=== PATIENT | female | born 1995 | race Caucasian/White ===

== ENCOUNTER 2018-08-18 15:12 | Inpatient (IN) | payer OTHER ==
[~2018-08-18] VITALS: Ht 170.2 cm; Wt 87.5 kg
[~2018-08-18 15:12] MED LIST: CLARITIN 1010 MG/TAB; IBU800 M1 PO; PEPCID 20MG TAB20 MG PO; PERCOCET 325 MG1 TA2 PO; PRENATAL1 TA7 PO; TYLENOL 325MG325 MG PO; ZOFRAN ODT4 MG PO
[2018-08-18] MEDS ORDERED: SPRINTEC 35 MCG1 TAB PO (15:22)
[2018-08-18 15:52] LABS: COLLECTION METHOD CLEAN CATCH
[2018-08-18 16:07] LABS: MUCOUS Present /lpf; PH 5 (5-8); SQUAMOUS EPITHELIAL 20-50 /hpf; URINE APPEARANCE Cloudy; URINE BACTERIA None Seen /hpf; URINE BILIRUBIN Negative (NEGATIVE); URINE BLOOD 2+ (NEGATIVE); URINE COLOR Amber; URINE GLUCOSE Negative (NEGATIVE); URINE KETONE Trace (NEGATIVE); URINE LEUKOCYTE ESTERASE Trace (NEGATIVE); URINE NITRATE Negative (NEGATIVE); URINE PROTEIN(semi-quant) 1+ (NEGATIVE); URINE UROBILINOGEN >=4.0 mg/dL (NEGATIVE)
[2018-08-18 16:18] LABS: EOS # 0.2 (0.0-0.7); EOS % 6.7 % (0-4.0); GRAN # 2.3 (1.4-6.5); HEMATOCRIT 38.5 % (37.0-47.0); HEMOGLOBIN 12.7 g/dl (12.5-16.0); LYMPH # 0.6 (1.2-3.4); LYMPH % 18.5 % (20.0-51.0); MEAN CELL VOLUME 85 fl (80.0-100.0); MEAN CORPUSCULAR HEMOGLOBIN 28 pg (27.0-31.0); MEAN CORPUSCULAR HGB CONC 33 g/dl (33.0-37.0); MEAN PLATELET VOLUME 10.7 fl (7.4-10.4); MONO # 0.2 (0.1-0.6); MONO % 5.5 % (1.7-9.3); PLATELET COUNT 147 K/mm3 (130-400); RED BLOOD COUNT 4.52 M/mm3 (4.10-5.30); REDCELL DISTRIBUTION WIDTH-CV 13.7 % (11.5-14.5)
[2018-08-18 16:28] LABS: ALBUMIN 4.4 gm/dL (3.5-5.0); BILIRUBIN,TOTAL 0.4 mg/dL (0.0-1.0); C-REACTIVE PROTEIN 4.7 mg/dL (0.0-0.9); CALCIUM 8.8 mg/dL (8.4-10.2); CREATININE, serum 0.67 mg/dL (0.52-1.25); POTASSIUM 3.7 mmol/L (3.4-5.0); TOTAL PROTEIN 7.7 gm/dL (6.4-8.2)
[2018-08-18 19:50] VITALS: BP 114/66; PULSE 72; TEMP 100.3
[2018-08-18 23:19] VITALS: TEMP 104.4
[2018-08-19] VITALS (8 sets, daily range): BP systolic 100–112; BP diastolic 56–78; PULSE 64–92; TEMP 97.9–101.9
[2018-08-19 07:43] LABS: EOS # 0.2 (0.0-0.7); GRAN # 1.6 (1.4-6.5); GRAN % 58.6 % (42.2-75.2); HEMATOCRIT 37.8 % (37.0-47.0); HEMOGLOBIN 12.5 g/dl (12.5-16.0); LYMPH # 0.8 (1.2-3.4); LYMPH % 30.3 % (20.0-51.0); MEAN CELL VOLUME 86 fl (80.0-100.0); MEAN CORPUSCULAR HEMOGLOBIN 28 pg (27.0-31.0); MEAN CORPUSCULAR HGB CONC 33 g/dl (33.0-37.0); MEAN PLATELET VOLUME 11.9 fl (7.4-10.4); MONO # 0.1 (0.1-0.6); MONO % 3.7 % (1.7-9.3); PLATELET COUNT 111 K/mm3 (130-400); REDCELL DISTRIBUTION WIDTH-CV 13.7 % (11.5-14.5)
[2018-08-19 08:00] LABS: ALBUMIN 3.7 gm/dL (3.5-5.0); BILIRUBIN,TOTAL 0.7 mg/dL (0.0-1.0); CALCIUM 8.2 mg/dL (8.4-10.2); CREATININE, serum 0.55 mg/dL (0.52-1.25); POTASSIUM 3.5 mmol/L (3.4-5.0); TOTAL PROTEIN 6.7 gm/dL (6.4-8.2)
[2018-08-19 09:03] LABS: COLLECTION METHOD CLEAN CATCH
[2018-08-19 09:11] LABS: MUCOUS Present /lpf; PH 5 (5-8); URINE APPEARANCE Hazy; URINE BACTERIA None Seen /hpf; URINE BILIRUBIN Negative (NEGATIVE); URINE BLOOD 1+ (NEGATIVE); URINE COLOR Amber; URINE GLUCOSE Negative (NEGATIVE); URINE KETONE 2+ (NEGATIVE); URINE LEUKOCYTE ESTERASE Negative (NEGATIVE); URINE NITRATE Negative (NEGATIVE); URINE PROTEIN(semi-quant) 1+ (NEGATIVE); URINE RBC 20-50 /hpf; URINE UROBILINOGEN >=4.0 mg/dL (NEGATIVE)
[2018-08-19 09:46] LABS: HIV 1/2 Antibodies Non-Reactive; HIV-1p24 Antigen Non-Reactive
[2018-08-20 01:07] VITALS: BP 111/57; PULSE 70; TEMP 98.7
[2018-08-20 04:44] VITALS: BP 115/78; PULSE 66; TEMP 99.9
[2018-08-20 06:26] LABS: MEAN CELL VOLUME 85 fl (80.0-100.0); MEAN CORPUSCULAR HGB CONC 33 g/dl (33.0-37.0); MEAN PLATELET VOLUME 11.8 fl (7.4-10.4); PLATELET COUNT 114 K/mm3 (130-400); RED BLOOD COUNT 3.69 M/mm3 (4.10-5.30); REDCELL DISTRIBUTION WIDTH-CV 13.7 % (11.5-14.5)
[2018-08-20 06:28] LABS: HEMATOCRIT 31.2 % (37.0-47.0); HEMOGLOBIN 10.4 g/dl (12.5-16.0); MEAN CORPUSCULAR HEMOGLOBIN 28 pg (27.0-31.0)
[2018-08-20 06:37] LABS: ALBUMIN 3.2 gm/dL (3.5-5.0); BILIRUBIN,TOTAL 0.4 mg/dL (0.0-1.0); CALCIUM 7.6 mg/dL (8.4-10.2); CREATININE, serum 0.53 mg/dL (0.52-1.25); POTASSIUM 3.8 mmol/L (3.4-5.0)
[2018-08-20 07:22] LABS: BAND 26 % (0-10); EOSINOPHIL 5 % (0-4); LYMPHOCYTE 46 % (20.0-51.0); NEUTROPHILS 18 % (42.0-75.2); PLATELET ESTIMATE DECREASED (NORMAL)
[2018-08-20 08:45] VITALS: BP 104/61; PULSE 50; TEMP 98.6
[2018-08-20 12:29] VITALS: BP 110/73; PULSE 58; TEMP 98.1
[2018-08-20 15:38] VITALS: BP 107/71; PULSE 54; TEMP 98.6
[2018-08-20 21:17] VITALS: BP 101/57; PULSE 65; TEMP 98.5
[2018-08-21 03:45] VITALS: BP 117/69; PULSE 58; TEMP 98.1
[2018-08-21 05:58] LABS: CREATININE, serum 0.53 mg/dL (0.52-1.25); POTASSIUM 3.6 mmol/L (3.4-5.0)
[2018-08-21 06:00] LABS: HEMOGLOBIN 11.1 g/dl (12.5-16.0); MEAN CELL VOLUME 82 fl (80.0-100.0); MEAN CORPUSCULAR HEMOGLOBIN 28 pg (27.0-31.0); MEAN CORPUSCULAR HGB CONC 34 g/dl (33.0-37.0); MEAN PLATELET VOLUME 11.5 fl (7.4-10.4); PLATELET COUNT 128 K/mm3 (130-400); RED BLOOD COUNT 4.01 M/mm3 (4.10-5.30); REDCELL DISTRIBUTION WIDTH-CV 13.3 % (11.5-14.5)
[2018-08-21 06:27] LABS: BAND 12 % (0-10); EOSINOPHIL 2 % (0-4); LYMPHOCYTE 41 % (20.0-51.0); NEUTROPHILS 40 % (42.0-75.2)
[2018-08-21 08:14] VITALS: BP 105/70; PULSE 80; TEMP 99.8
[2018-08-21 08:20] LABS: PATHOLOGY DIFF REVIEW OK +
[2018-08-21 09:56] LABS: LYME DISEASE ANTIBODIES Negative (Negative)
[2018-08-21 12:15] VITALS: BP 117/66; PULSE 68; TEMP 98.9
[2018-08-21] MEDS ORDERED: CEFTIN500 MG PO (14:12)
[2018-08-21 15:14] VITALS: BP 119/81; PULSE 77; TEMP 98.2
[2018-08-25 22:11] LABS: EHRLICHIA CHAFFEENIS IGG SEE RESULTS IN PCI; EHRLICHIA CHAFFEENIS IGM SEE RESULTS IN PCI
== END 2018-08-21 16:05 | disposition home or self-care (01) | DRG 864 ==
LOC: COL.ER 15:12 → SURG 18:25
PROVIDERS: Emergency Medicine; Internal Medicine Infectious Disease; Nurse Practitioner; Nurse Practitioner Family; Physician Assistant
DX: R50.9 Fever, unspecified (principal); K80.20 Calculus of gallbladder without cholecystitis without obstruction; D69.6 Thrombocytopenia, unspecified; L27.0 Generalized skin eruption due to drugs and medicaments taken internally; T36.0X5A Adverse effect of penicillins, initial encounter
CPT/HCPCS: OP; 99222-AI; 99232-AI; G0378; J1200; J1650; J1885; J2270; J2405; J2543; J7030; Q9967

== ENCOUNTER → 2018-10-02 | Outpatient (CLI) | payer OTHER ==
[~2018-10-02] MED LIST changes: +CEFTIN500 MG PO; +SPRINTEC 35 MCG1 TAB PO
[2018-10-02 16:47] LABS: BASO % 0.5 % (0.0-2.0); EOS # 0.1 (0.0-0.7); EOS % 1.7 % (0-4.0); GRAN # 2.9 (1.4-6.5); HEMOGLOBIN 12.1 g/dl (12.5-16.0); LYMPH # 2.6 (1.2-3.4); LYMPH % 44.4 % (20.0-51.0); MEAN CELL VOLUME 88 fl (80.0-100.0); MEAN CORPUSCULAR HEMOGLOBIN 29 pg (27.0-31.0); MEAN CORPUSCULAR HGB CONC 33 g/dl (33.0-37.0); MEAN PLATELET VOLUME 10.7 fl (7.4-10.4); MONO # 0.3 (0.1-0.6); MONO % 4.2 % (1.7-9.3); PLATELET COUNT 398 K/mm3 (130-400); RED BLOOD COUNT 4.23 M/mm3 (4.10-5.30); REDCELL DISTRIBUTION WIDTH-CV 14.3 % (11.5-14.5)
[2018-10-02 16:53] LABS: ALBUMIN 4.7 gm/dL (3.5-5.0); BILIRUBIN,TOTAL 0.4 mg/dL (0.0-1.0); CALCIUM 9.5 mg/dL (8.4-10.2); CREATININE, serum 0.57 mg/dL (0.52-1.25); POTASSIUM 4.1 mmol/L (3.4-5.0); TOTAL PROTEIN 8.6 gm/dL (6.4-8.2)
== END ==
LOC: ZCOL.LAB 16:42
PROVIDERS: Family Medicine
DX: D69.6 Thrombocytopenia, unspecified (principal); R74.8 Abnormal levels of other serum enzymes

== ENCOUNTER → 2018-10-07 | Outpatient (CLI) | payer OTHER ==
[2018-10-07 18:59] LABS: THYROID STIMULATING HORMONE 2.94 uIU/mL (0.465-4.680)
== END ==
LOC: COL.LAB 17:44
PROVIDERS: Family Medicine
DX: R74.8 Abnormal levels of other serum enzymes (principal)

== ENCOUNTER → 2018-10-10 | Outpatient (CLI) | payer OTHER ==
[2018-10-11 04:21] LABS: IMMUNOGLOBULIN A 77 mg/dL (65-421)
== END ==
LOC: COL.LAB 15:50
PROVIDERS: Family Medicine
DX: D50.9 Iron deficiency anemia, unspecified (principal); R74.8 Abnormal levels of other serum enzymes

== ENCOUNTER → 2021-03-24 | Outpatient (CLI) | payer OTHER ==
[~2021-03-24] MED LIST changes: +CLARITIN 1010 MG/TAB PO; +MUCINEX 60600 MG/TA1 PO; +PRENATAL TABLET PO; +PROTONIX 40MG T40 MG PO; +TYLENOL 500MG500 MG PO; +ZOLOFT 50MG50 MG PO
== END ==
LOC: ZCOL.LAB 11:01
DX: Z20.822 Contact with and (suspected) exposure to COVID-19 (principal)

== ENCOUNTER 2021-03-28 06:20 | Inpatient (IN) | payer BC ==
[2021-03-28] VITALS (43 sets, daily range): BP systolic 100–156; BP diastolic 52–87; PULSE 64–111; TEMP 98.2–99.3
[~2021-03-28] VITALS: Ht 170.2 cm; Wt 110.0 kg
[~2021-03-28 06:20] MED LIST changes: -CLARITIN 1010 MG/TAB PO; -MUCINEX 60600 MG/TA1 PO; -PRENATAL TABLET PO; -PROTONIX 40MG T40 MG PO; -TYLENOL 500MG500 MG PO; -ZOLOFT 50MG50 MG PO
[2021-03-28] MEDS ORDERED: CLARITIN 1010 MG/TAB PO (07:13)
[2021-03-28] MEDS ORDERED: ZOLOFT 50MG50 MG PO (07:14)
[2021-03-28] MEDS ORDERED: PROTONIX 40MG T40 MG PO (07:14)
[2021-03-28] MEDS ORDERED: MUCINEX 60600 MG/TA1 PO (07:15)
[2021-03-28] MEDS ORDERED: TYLENOL 500MG500 MG PO (07:16)
[2021-03-28] MEDS ORDERED: PRENATAL TABLET PO (07:18)
[2021-03-28 07:49] LABS: BASO % 0.4 % (0.0-2.0); EOS # 0.1 (0.0-0.7); EOS % 0.9 % (0-4.0); GRAN % 62.1 % (42.2-75.2); LYMPH # 2.8 (1.2-3.4); LYMPH % 29.4 % (20.0-51.0); MEAN CELL VOLUME 86 fl (80.0-100.0); MEAN CORPUSCULAR HGB CONC 32 g/dl (33.0-37.0); MEAN PLATELET VOLUME 10.5 fl (7.4-10.4); MONO # 0.6 (0.1-0.6); MONO % 5.8 % (1.7-9.3); PLATELET COUNT 256 K/mm3 (130-400); RED BLOOD COUNT 3.28 M/mm3 (4.10-5.30); REDCELL DISTRIBUTION WIDTH-CV 14.3 % (11.5-14.5)
--- NOTE | 2021-03-28 07:49 | NUR ---
PT HERE FOR INDUCTION OF LABOR. PLAN OF CARE REVIEWED WITH PT AND . PT REPORTS SHE IS VERY ANXIOUS. QUESTIONS ANSWERED. FHT'S FOUND IN THE 130-140'S WITH MODERATE VARIABILITY AND ACCELS. IV STARTED IN LEFT HAND WITH LR INFUSING WITHOUT DIFFICULTY.
[2021-03-28 07:52] LABS: HEMATOCRIT 28.1 % (37.0-47.0); HEMOGLOBIN 9.1 g/dl (12.5-16.0); MEAN CORPUSCULAR HEMOGLOBIN 28 pg (27.0-31.0)
--- NOTE | 2021-03-28 08:30 | NUR ---
UNABLE TO ESTABLISH HEART RATE BASELINE PT WAS IN BATHROOM FOR 5 MINUTES. PT TO CHAIR AFTER VOIDING.
--- NOTE | 2021-03-28 09:00 | NUR ---
PT CONTINUES TO SIT IN CHAIR. STATES SHE IS NOT REALLY FEELING ANY CONTRACTIONS AT THIS POINT. PIT TO 10MU AT 0900. DR ROWLAND CALLS HERE AT 0900 TO CHECK ON PT AND STATES SHE WILL COME OVER TO BREAK WATER AFTER HER NEXT SURGERY. PT NOTIFIED.
--- NOTE | 2021-03-28 09:30 | NUR ---
PT GOT BACK INTO BED HERSELF. LYING RIGHT LATERAL. CONRACTIONS DIFFICULT TO MONITOR WITH PT LYING IN THIS POSITION.
--- NOTE | 2021-03-28 09:45 | NUR ---
CONTINUE TO BE UNABLE TO MONITOR CONTRACTIONS. WILL REPOSITION TOCO.
--- NOTE | 2021-03-28 10:45 | NUR ---
DR ROWLAND IN AT 1036. SVE /-2. AROM AT 1038 WITH CLEAR FLUID.
--- NOTE | 2021-03-28 11:15 | NUR ---
PT UP TO BATHROOM AND THEN TO SIT ON BIRTHING BALL. CONTRACTIONS DIFFICULT TO MONITOR WHILE SITTING ON BALL. REPOSITIONED TOCO MONITOR.
--- NOTE | 2021-03-28 12:30 | NUR ---
CONTRACTIONS REMAIN DIFFICULT TO MONITOR WHILE PT IS SITTING ON BIRTHING BALL.
--- NOTE | 2021-03-28 12:45 | NUR ---
PT WANTING EPIDURAL AT THIS TIME. FLUID BOLUS STARTED. PT SITTING UP IN BED FOR EPIDURAL.
--- NOTE | 2021-03-28 13:00 | NUR ---
PT SITTING UP FOR EPIDURAL. IRAJ FULLER, IN AT 1248 FOR EPIDURAL PLACEMENT. SINGLE SHOT EPIDURAL AT 1254 WITH NO ABNORMAL SYMPTOMS REPORTED OR OBSERVED. PT REPOSITIONED LYING DOWN AFTER EPIDURAL PLACEMENT.
--- NOTE | 2021-03-28 14:00 | NUR ---
HAYDEN PLACED BY ADA, STUDENT PN NURSE, WITH THIS RN IN ATTENDANCE. CLEAR YELLOW URINE RETURNED. SVE BY THIS RN /-2. PT REPOSITIONED WITH PEANUT BALL.
--- NOTE | 2021-03-28 15:00 | NUR ---
PT REPORTING SHE IS VERY ITCHY. 25MG IV BENADRYL GIVEN. PT REPOSITIONED.
--- NOTE | 2021-03-28 15:30 | NUR ---
AUDIBLE DECELS IN FHT'S AND LOSING ABILITY TO MONITOR FHT'S. REPOSITIONED PT TO PLACE FSE.
--- NOTE | 2021-03-28 15:45 | NUR ---
PRIOR TO PLACING FSE, SVE PERFORMED AND PT WITH COMPLETE CERVICAL DILATION AND +2. PHONED DR ROWLAND AT 1535 TO COME FOR DELIVERY. PT POSITIONED AND PREPPED FOR DELIVERY. DR HERE AT 1542. HAYDEN REMOVED WHEN DR ARRIVES. OF FEMALE AT 1545. BABY TO MOM'S CHEST IMMEDIATELY AND MOM CUTS CORD AFTER CORD CLAMPED. PITOCIN STOPPED AFTER DELIVERY OF INFANT.
--- NOTE | 2021-03-28 16:00 | NUR ---
DR ROWLAND AT BEDSIDE REPAIRING PERINEUM. SPONTANEOUS DELIVERY OF PLACENTA AT 1553. PITOCIN STARTED AT 333ML/HR. FUNDUS FIRMS WITH MASSAGE. ICE PACK TO PERINEUM ONCE DR COMPLETE WITH REPAIR.
--- NOTE | 2021-03-28 17:30 | NUR ---
PT UNABLE TO LIFT LEFT LEG OFF BED AT THIS TIME. EPIDURAL CATHETER REMOVED WITH TIP INTACT.
--- NOTE | 2021-03-28 19:30 | NUR ---
up to bathroom with steady gait. Voids large amount, performs own pericare. Clean gown on and ambulates to room. loving and attentive.
[2021-03-29 03:45] VITALS: BP 118/70; PULSE 76
[2021-03-29 08:30] VITALS: BP 108/58; PULSE 73; TEMP 97.8
--- NOTE | 2021-03-29 09:02 | NUR ---
PT INFORMED THIS RN SHE TOOK HER OWN ZOLOFT SHE BROUGHT FROM HOME
[2021-03-29] MEDS ORDERED: IBU800 M1 PO (11:43)
[2021-03-29] MEDS ORDERED: PERCOCET 325 MG1 TA2 PO (11:43)
[2021-03-29 12:34] VITALS: BP 110/66; PULSE 78; TEMP 97.1
[2021-03-29 17:32] VITALS: BP 137/75; PULSE 80; TEMP 98.1
== END 2021-03-29 18:15 | disposition home or self-care (01) | DRG 807 ==
LOC: LDR 06:20 → OB 14:46
PROVIDERS: ADMIT Student in an Organized Health Care Education/Training Program
PROC: 10E0XZZ Delivery of Products of Conception, External Approach (ICD-10-PCS; principal; 2021-03-28)
PROC: 0KQM0ZZ Repair Perineum Muscle, Open Approach (ICD-10-PCS; 2021-03-28)
PROC: 10907ZC Drainage of Amniotic Fluid, Therapeutic from Products of Conception, Via Natural or Artificial Opening (ICD-10-PCS; 2021-03-28)
PROC: 3E033VJ Introduction of Other Hormone into Peripheral Vein, Percutaneous Approach (ICD-10-PCS; 2021-03-28)
DX: O48.0 Post-term pregnancy (principal); Z37.0 Single live birth; O99.214 Obesity complicating childbirth; E66.9 Obesity, unspecified; O99.62 Diseases of the digestive system complicating childbirth; K21.9 Gastro-esophageal reflux disease without esophagitis; O99.344 Other mental disorders complicating childbirth; F32.9 Major depressive disorder, single episode, unspecified; O99.02 Anemia complicating childbirth; D64.9 Anemia, unspecified; O70.1 Second degree perineal laceration during delivery; Z3A.40 40 weeks gestation of pregnancy
CPT/HCPCS: J1200; J2590; J2795; J7120

== ENCOUNTER 2022-06-21 05:34 | Inpatient (IN) | payer BC ==
[~2022-06-21] VITALS: Ht 170.3 cm; Wt 110.0 kg
[2022-06-21] VITALS (18 sets, daily range): BP systolic 99–123; BP diastolic 49–85; PULSE 63–95; TEMP 98.2–99.7
[~2022-06-21 05:34] MED LIST changes: +CLARITIN 1010 MG/TAB PO; +MUCINEX 60600 MG/TA1 PO; +PRENATAL TABLET PO; +PROTONIX 40MG T40 MG PO; +TYLENOL 500MG500 MG PO; +ZOLOFT 50MG50 MG PO
--- NOTE | 2022-06-21 05:40 | NUR ---
0540 G5L3 TO 210 FOR PRIMARY C/SECT FOR BREECH PRESENTATION. EFM ON. ADM PERMITS SIGNED. IV STARTED.
[2022-06-21] MEDS ORDERED: CLARITIN 1010 MG/TAB PO (06:34)
[2022-06-21] MEDS ORDERED: PRIL40 PO (06:35)
[2022-06-21 06:45] LABS: BASO % 0.4 % (0.0-2.0); EOS # 0.1 K/mm3 (0.0-0.7); EOS % 1.6 % (0.0-4.0); GRAN # 5.3 K/mm3 (1.4-6.5); GRAN % 61.9 % (42.2-75.2); LYMPH # 2.5 K/mm3 (1.2-3.4); LYMPH % 29.2 % (20.0-51.0); MEAN CELL VOLUME 76 fl (80.0-100.0); MEAN CORPUSCULAR HGB CONC 30 g/dl (33.0-37.0); MEAN PLATELET VOLUME 10.8 fl (7.4-10.4); MONO # 0.5 K/mm3 (0.1-0.6); MONO % 6.1 % (1.7-9.3); PLATELET COUNT 303 K/mm3 (130-400); RED BLOOD COUNT 3.32 M/mm3 (4.10-5.30); REDCELL DISTRIBUTION WIDTH-CV 15.7 % (11.5-14.5)
[2022-06-21 06:48] LABS: HEMATOCRIT 25.1 % (37.0-47.0); HEMOGLOBIN 7.6 g/dl (12.5-16.0); MEAN CORPUSCULAR HEMOGLOBIN 23 pg (27-31)
[2022-06-21] MEDS ORDERED: NATURAL IRON65 MG PO (06:54)
--- NOTE | 2022-06-21 10:30 | NUR ---
REQUESTING PAIN MEDICATION, HAS TOLERATED CRACKERS AND JUICE WITHOUT NAUSEA
--- NOTE | 2022-06-21 10:57 | NUR ---
0945 REPORT GIVEN TO SHEREE COHEN RN. SHEREE AWARE OF METHERGINE AND PITOCIN GIVEN DURING C/S. PATIENT STABLE AND SCANT BLEEDING AT THIS TIME.
--- NOTE | 2022-06-21 11:05 | NUR ---
PERCOCET 1 TAB GIVEN FOR INCISIONAL PAIN, MEAL HERE, PT UNABLE TO LIFT EITHER LEG. AT BEDSIDE, DENIES FURTHER NEEDS
--- NOTE | 2022-06-21 11:08 | NUR ---
HAS HAD NO RELIEF OF PAIN FROM PERCOCET, HAS TOLERATED FOOD WITHOUT NAUSEA. DENIES NEEDS AT THIS TIME
--- NOTE | 2022-06-21 15:10 | NUR ---
BACK TO ROOM PER W/C FROM NURSERY, BACK TO BED WITH ASSIST. ABD BINDER ON. PADS CHANGED AND CAMERON CARE PROVIDED. SCD'S PLACED BACK ON LOWER EXTREMETIES. REQUESTING PAIN MEDICATION
--- NOTE | 2022-06-21 15:32 | NUR ---
PT WANTING TO GO TO NURSERY FOR INFANT ECHODR FRANCIS AT BEDSIDE AND APPROVES THAT PT MAY BE WITH . PT ABLE TO MOVE LEGS WELL. IV CONVERTED TO SALINE LOCK, IV FLUIDS INFUSED. OUT OF BED WITH ASSIST X2, TO WHEELCHAIR, THEN TO NURSERY WITH RN
--- NOTE | 2022-06-21 17:40 | NUR ---
1700 - HAYDEN CATHETER DC'D, CAMERON CARE PROVIDED AND PADS CHANGED. OUT OF BED, AMBULATES AROUND ROOM AND TOLERATES WELL, THEN AMBULATES TO NURSERY TO SEE BABY WITH MOTHER
--- NOTE | 2022-06-21 18:30 | NUR ---
Bedside report recieved. Resting in room. Updated whiteboard and reviewed POC.
[2022-06-22] VITALS (7 sets, daily range): BP systolic 105–124; BP diastolic 47–70; PULSE 62–90; TEMP 97.9–99.5
[2022-06-22] MEDS ORDERED: PERCOCET 325 MG1 TA2 PO (08:26)
[2022-06-22] MEDS ORDERED: IBU800 M1 PO (08:26)
[2022-06-22 08:56] LABS: MEAN CELL VOLUME 79 fl (80.0-100.0); MEAN CORPUSCULAR HGB CONC 29 g/dl (33.0-37.0); MEAN PLATELET VOLUME 10.5 fl (7.4-10.4); PLATELET COUNT 222 K/mm3 (130-400); RED BLOOD COUNT 2.94 M/mm3 (4.10-5.30); REDCELL DISTRIBUTION WIDTH-CV 15.8 % (11.5-14.5)
[2022-06-22 09:00] LABS: HEMATOCRIT 23.1 % (37.0-47.0); MEAN CORPUSCULAR HEMOGLOBIN 23 pg (27-31)
[2022-06-22 09:02] LABS: HEMOGLOBIN 6.8 g/dl (12.5-16.0)
--- NOTE | 2022-06-22 09:04 | NUR ---
Initial visit attempt; Patient sleeping, Shoes Hand Sewer left card of congratulations and God's blessings along with information regarding the availability of [facility] at our hospital.
[2022-06-23 09:15] VITALS: BP 105/49; PULSE 79; TEMP 98.2
--- NOTE | 2022-06-23 09:35 | NUR ---
Rests in bed, alert. Request pain medication. Ibuprofen 800 mg given as ordered and per protocol.
--- NOTE | 2022-06-23 10:10 | NUR ---
Rests in bed, alert. Percocet 5/325 mg one given per request and as ordered.
--- NOTE | 2022-06-23 11:00 | NUR ---
Rests in bed, alert. Discharge instructions given. Verbalizes understanding.
== END 2022-06-23 11:00 | disposition home or self-care (01) | DRG 788 ==
LOC: OB 05:34
PROVIDERS: ADMIT Student in an Organized Health Care Education/Training Program
PROC: 10D00Z1 Extraction of Products of Conception, Low, Open Approach (ICD-10-PCS; principal; 2022-06-21)
DX: O32.1XX0 Maternal care for breech presentation, not applicable or unspecified (principal); O35.8XX0 Maternal care for other (suspected) fetal abnormality and damage, not applicable or unspecified; O32.0XX0 Maternal care for unstable lie, not applicable or unspecified; O99.214 Obesity complicating childbirth; O99.02 Anemia complicating childbirth; D64.9 Anemia, unspecified; O99.62 Diseases of the digestive system complicating childbirth; K21.9 Gastro-esophageal reflux disease without esophagitis; O99.52 Diseases of the respiratory system complicating childbirth; J45.909 Unspecified asthma, uncomplicated; O99.344 Other mental disorders complicating childbirth; F32.A Depression, unspecified; Z37.0 Single live birth; Z3A.39 39 weeks gestation of pregnancy; Z86.16 Personal history of COVID-19; Z88.5 Allergy status to narcotic agent
CPT/HCPCS: J0690; J1100; J1885; J2210; J2405; J2590; J3010; J7120

== ENCOUNTER 2022-08-21 06:18 | Observation (INO) | payer BC ==
[~2022-08-21] VITALS: Wt 100.0 kg
[~2022-08-21 06:18] MED LIST changes: +NATURAL IRON65 MG PO; +PRIL40 PO
[2022-08-21 07:04] LABS: COLLECTION METHOD CLEAN CATCH
[2022-08-21 07:15] LABS: BASO % 0.5 % (0.0-2.0); EOS # 0.2 K/mm3 (0.0-0.7); EOS % 2.5 % (0.0-4.0); GRAN # 4.3 K/mm3 (1.4-6.5); GRAN % 57.1 % (42.2-75.2); LYMPH # 2.6 K/mm3 (1.2-3.4); LYMPH % 34.9 % (20.0-51.0); MEAN CELL VOLUME 74 fl (80.0-100.0); MEAN CORPUSCULAR HGB CONC 30 g/dl (33.0-37.0); MEAN PLATELET VOLUME 10.4 fl (7.4-10.4); MONO # 0.4 K/mm3 (0.1-0.6); MONO % 4.7 % (1.7-9.3); PLATELET COUNT 301 K/mm3 (130-400); RED BLOOD COUNT 4.21 M/mm3 (4.10-5.30)
[2022-08-21 07:20] LABS: HEMATOCRIT 31.3 % (37.0-47.0); HEMOGLOBIN 9.4 g/dl (12.5-16.0); MEAN CORPUSCULAR HEMOGLOBIN 22 pg (27-31)
[2022-08-21 07:26] LABS: PH 5.5 (5.0-8.5); URINE APPEARANCE Clear (CLEAR/HAZY); URINE BLOOD TRACE-INTACT (NEGATIVE); URINE COLOR Yellow (YELLOW); URINE GLUCOSE Negative (NEGATIVE); URINE KETONE Negative (NEGATIVE); URINE NITRATE Negative (NEGATIVE); URINE PROTEIN(semi-quant) Negative (NEGATIVE); URINE UROBILINOGEN 0.2 E.U/dL (0.2-1.0)
[2022-08-21 07:34] LABS: ALBUMIN 4.3 gm/dL (3.5-5.0); BILIRUBIN,TOTAL 0.3 mg/dL (0.2-1.2); CALCIUM 8.9 mg/dL (8.4-10.2); CREATININE, serum 0.7 mg/dL (0.57-1.11); POTASSIUM 4.2 mmol/L (3.5-4.5); TOTAL PROTEIN 7.2 gm/dL (6.2-8.1)
[2022-08-21 07:35] LABS: MUCOUS Present (NOT PRESENT); SQUAMOUS EPITHELIAL 0-2 /hpf (0-10); URINE BACTERIA None Seen /hpf (NONE SEEN); URINE RBC 0-2 /hpf (0-2)
[2022-08-21 12:14] VITALS: BP 112/60; PULSE 58; TEMP 98.2
[2022-08-21 12:29] VITALS: BP 110/70; PULSE 63
[2022-08-21 12:44] VITALS: BP 116/67; PULSE 58
[2022-08-21 12:59] VITALS: BP 115/50; PULSE 61
[2022-08-21 13:07] VITALS: TEMP 97.7
[2022-08-21 13:29] VITALS: BP 124/69; PULSE 60
[2022-08-21] MEDS ORDERED: PERCOCET 325 MG1 TA2 PO ×2 (14:18→17:18)
== END 2022-08-21 14:57 | disposition home or self-care (01) ==
LOC: COL.ER 06:18 → MEDICAL 08:49
PROVIDERS: Emergency Medicine; ADMIT Surgery
DX: K80.10 Calculus of gallbladder with chronic cholecystitis without obstruction (principal); K82.1 Hydrops of gallbladder; I97.42 Intraoperative hemorrhage and hematoma of a circulatory system organ or structure complicating other procedure; Y84.8 Other medical procedures as the cause of abnormal reaction of the patient, or of later complication, without mention of misadventure at the time of the procedure
CPT/HCPCS: G0378; J1100; J1170; J1885; J2270; J2405; J2543; J2704; J2710; J3010; J7120; Q9967